=== PATIENT | male | born 1995 | race Caucasian/White ===

== ENCOUNTER 2016-10-28 13:34 | Emergency (ER) | payer BC, OTHER ==
--- NOTE | 2016-10-28 14:24 | ERNOTE ---
Medical Problem HPI - Narrative Date of Service: 10/28/16 - General Chief Complaint: Laceration Time Seen by Provider: 10/28/16 14:02 Source: patient Exam Limitations: no limitations - Immun/Allergies/Home Medications Immunizations: IMMUNIZATION HX Immunizations Up to Date Yes History of Influenza Vaccine No Hx Pneumococcal Vaccination No Allergies/Adverse Reactions: Allergies No Known Allergies Allergy (Verified 10/28/16 13:57) Home Medications: HOME MEDICATIONS NK [No Home Medication] 01/31/16 [Last Taken Unknown] - History of Present History Narrative: Patient presents to the ED for a laceration. He was at work using a cable reeler and it broke lose striking his right eyebrow. dT UTD. No other injuries. No facial bone pain, no vision changes. No LOC or neck pain. No N/T /W. Pain minimal at the laceration site. Timing: constant Severity: mild Modifying Factors - (Improves): Present: other - nothing Modifying Factors - (Worsens): Present: other - palpation Review of Systems - Review of Systems Constitutional: Absent: fever EYE: Absent: vision changes - Patient's Past Medical History Patient History - Medical: Kidney stone, Other Patient History - Cardiac/Respiratory: No pertinent hx Patient History - Cancer: No Hx of Cancer Patient History - Surgical Procedures: Other Patient History - Other: None - Family History Mother Family History - Medical: Kidney stone Family History - Cardiac/Respiratory: No pertinent hx Father Family History - Medical: Diabetes Type 2 Family History - Cardiac/Respiratory: No pertinent hx - Social History Living Situations: home Abuse History: No History of abuse Psych History: No pertinent hx Smoking Status: Never smoker Alcohol Use: rarely Drug Use: none - Immunizations Immunizations Up to Date: Yes Hx Pneumococcal Vaccination: No History of Influenza Vaccine: No Physical Exam - Physical Exam General Appearance: Present: alert, no apparent distress Head Exam: Present: other - 1 cm superficial laceration right eyebrow. No hyphema. Absent: active bleeding, Enciso's Sign Eye Exam: Normal inspection: bilateral, PERRL: bilateral, EOMI: bilateral Ears, Nose, Throat: Present: other - No facial bone tenderness. No evidence of headinjury, Nothing suggestion the need for CT imaging of head or facial bones. 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 No FB seen. ED Progress - Vital Signs Patient's Vital Signs:: I have reviewed the patient's vital signs. Vital Signs: Vital Signs 10/28/16 13:45 Temperature 36.9 C Pulse Rate 91 Respiratory 14 Rate Blood Pressure 120/73 O2 Sat by Pulse 98 Oximetry - Progress/Reassessment Chief Complaint: Laceration Procedures Right Eye Anesthesia: 1% Lidocaine Length of Repair/Wound (cm): 1 Wound's Depth/Shape: superficial, linear Wound Explored: clean, to base, no foreign body Wound Intervention: irrigated w/saline Distal NVT: neuro/vasc intact Wound Repaired With: sutures Suture Size/Type: 5-0, prolene Number of Sutures: 2 Layer Closure: Simple Estimated blood loss (ml): 0 Wound Dressing: sterile dressing applied Complications: Pt evelina procedure well Departure - Departure Clinical Impression: Laceration, Facial laceration Disposition: Home self-care Condition: Stable Instructions: Facial Laceration, [id number] Additional Instructions: Wound care as directed. Sutures out in 5 days. Return for redness, swelling, signs of infection or if your condition worsens or changes in any way.
[2016-10-28 14:28] VITALS: BP 120/68
== END 2016-10-28 14:32 | disposition home or self-care (01) ==
LOC: ER 13:34
PROC: 0HQ1XZZ Repair Face Skin, External Approach (ICD-10-PCS; principal; 2016-10-28)
DX: S01.111A Laceration without foreign body of right eyelid and periocular area, initial encounter (principal); Z87.442 Personal history of urinary calculi; W22.8XXA Striking against or struck by other objects, initial encounter; Y93.89 Activity, other specified; Y92.69 Other specified industrial and construction area as the place of occurrence of the external cause; Y99.0 Civilian activity done for income or pay